=== PATIENT | male | born 1965 | race African-American/Black ===

== ENCOUNTER 2016-12-19 18:23 | Emergency (ER) | payer OTHER ==
[~2016-12-19] VITALS: Ht 180.3 cm; Wt 91.0 kg
[2016-12-19 18:26] VITALS: BP 157/92
[2016-12-19] MEDS ORDERED: METO-539 PO (18:28)
[2016-12-19] MEDS ORDERED: LISI-604 PO (18:28)
== END 2016-12-19 19:53 | disposition home or self-care (01) ==
LOC: ER 19:51
DX: Z76.0 Encounter for issue of repeat prescription (principal); I10 Essential (primary) hypertension
CPT/HCPCS: 99283

== ENCOUNTER 2017-04-09 15:58 | Emergency (ER) | payer SELFPAY ==
[~2017-04-09] VITALS: Ht 175.3 cm; Wt 90.0 kg
[~2017-04-09 15:58] MED LIST: LISI-604 PO; METO-539 PO
[2017-04-09] MEDS ORDERED: SODIUM CHLORIDE 0.9% 1,000 ML IV ONE (16:13)
[2017-04-09 17:04] LABS: CHLORIDE 104 mEq/L (98-107)
[2017-04-09 17:06] LABS: INR 1.1; PROTHROMBIN TIME 11.5 sec (9.4-11.6)
[2017-04-09 17:09] LABS: CARBON DIOXIDE 31 mEq/L (21-32)
[2017-04-09 17:14] LABS: BASOPHILS % 0.3 % (0.0-2.0); EOSINOPHILS % 0.6 % (0.0-5.0); HEMATOCRIT. 35.1 % (42.0-52.0); HEMOGLOBIN. 12.1 g/dL (14.0-18.0); MEAN CORPUSCULAR HEMOGLOBIN 35.3 pg (28.0-32.0); MEAN CORPUSCULAR VOLUME 102.4 fL (80.0-94.0); MONOCYTES % 10.3 % (2.0-8.0); NEUTROPHILS % 46.8 % (40.0-76.0); PLATELET 270 x1000/uL (130-400); RED BLOOD CELL COUNT 3.43 mill/uL (4.7-6.1); RED CELL DISTRIBUTION WIDTH 14.3 % (11.6-14.6)
[2017-04-09 18:43] LABS: CLARITY URINE CLEAR (CLEAR); COLOR URINE YELLOW (YELLOW); GLUCOSE URINE NEGATIVE (NEGATIVE); KETONES URINE NEGATIVE (NEGATIVE); LEUKOCYTE ESTERASE URINE NEGATIVE (NEGATIVE); NITRITE URINE NEGATIVE (NEGATIVE); OCCULT BLOOD URINE NEGATIVE (NEGATIVE); PROTEIN URINE NEGATIVE (NEGATIVE); SPECIFIC GRAVITY URINE 1.017 (1.005-1.030)
[2017-04-09 19:24] VITALS: BP 126/74
== END 2017-04-09 19:25 | disposition home or self-care (01) ==
LOC: ER 15:58
DX: R55 Syncope and collapse (principal); I10 Essential (primary) hypertension; Z86.73 Personal history of transient ischemic attack (TIA), and cerebral infarction without residual deficits
CPT/HCPCS: 36415; 80053; 81003; 85025; 85610; 93005; 96360; 96361; 99285; J7030; Z7610

== ENCOUNTER 2018-10-10 00:51 | Emergency (ER) | payer MEDICAID ==
[~2018-10-10] VITALS: Ht 175.3 cm; Wt 97.0 kg
[2018-10-10] MEDS ORDERED: HYDROCODONE/ACETAMINOPHEN 5/325MG TABLET PO ONE (02:30)
[2018-10-10 03:01] VITALS: BP 130/80
== END 2018-10-10 03:03 | disposition home or self-care (01) ==
LOC: ER 00:51
DX: H66.92 Otitis media, unspecified, left ear (principal); I10 Essential (primary) hypertension; F12.90 Cannabis use, unspecified, uncomplicated; Z86.73 Personal history of transient ischemic attack (TIA), and cerebral infarction without residual deficits
CPT/HCPCS: 99283

== ENCOUNTER 2018-10-14 16:52 | Emergency (ER) | payer MEDICAID ==
[~2018-10-14] VITALS: Ht 185.4 cm; Wt 91.0 kg
[2018-10-14 20:47] VITALS: BP 142/91
== END 2018-10-14 20:48 | disposition home or self-care (01) ==
LOC: ER 19:14
DX: R42 Dizziness and giddiness (principal); M79.602 Pain in left arm; H53.8 Other visual disturbances; V49.49XA Driver injured in collision with other motor vehicles in traffic accident, initial encounter; I10 Essential (primary) hypertension; Y93.89 Activity, other specified; Y92.410 Unspecified street and highway as the place of occurrence of the external cause
CPT/HCPCS: 99284

== ENCOUNTER 2018-12-10 23:45 | Emergency (ER) | payer MEDICAID, OTHER ==
[~2018-12-10] VITALS: Ht 175.3 cm; Wt 100.0 kg
[2018-12-11] MEDS: METOPROLOL TARTRATE 50MG TABLET PO ONE (01:12)
[2018-12-11 02:25] VITALS: BP 136/89
== END 2018-12-11 02:26 | disposition home or self-care (01) ==
LOC: ER 23:45
DX: I47.1 Supraventricular tachycardia (principal); R07.89 Other chest pain; R42 Dizziness and giddiness; R00.2 Palpitations; I10 Essential (primary) hypertension; Z86.73 Personal history of transient ischemic attack (TIA), and cerebral infarction without residual deficits; F12.10 Cannabis abuse, uncomplicated
CPT/HCPCS: 93005; 99283

== ENCOUNTER 2019-01-05 03:12 | Inpatient (IN) | payer MEDICAID, OTHER ==
[~2019-01-05] VITALS: Ht 175.3 cm; Wt 95.3 kg
[2019-01-05] MEDS ORDERED: SODIUM CHLORIDE 0.9% 1,000 ML IV ONE (03:52)
[2019-01-05] MEDS ORDERED: ONDANSETRON HCL 4MG/2ML INJ IV STA (03:52)
[2019-01-05] MEDS ORDERED: MORPHINE SULFATE 4 MG/ML CPJ (NOT FOR IM USE) IV ONE (04:00)
[2019-01-05 04:16] LABS: BASOPHILS % 0.5 % (0.0-2.0); EOSINOPHILS % 1.3 % (0.0-5.0); HEMATOCRIT. 41.5 % (42.0-52.0); HEMOGLOBIN. 14.8 g/dL (14.0-18.0); LYMPHOCYTES % 54.1 % (20.0-50.0); MEAN CORPUSCULAR HEMOGLOBIN 35.8 pg (28.0-32.0); MEAN CORPUSCULAR VOLUME 100.1 fL (80.0-94.0); MEAN PLATELET VOLUME 7.3 fl (7.4-10.4); MONOCYTES % 11.7 % (2.0-8.0); NEUTROPHILS % 32.4 % (40.0-76.0); PLATELET 228 x1000/uL (130-400); RED BLOOD CELL COUNT 4.15 mill/uL (4.7-6.1); RED CELL DISTRIBUTION WIDTH 14.2 % (11.6-14.6)
[2019-01-05 04:26] LABS: CHLORIDE 105 mEq/L (98-107)
[2019-01-05 04:31] LABS: ETHANOL BLOOD < 10 mg/dL
[2019-01-05] MEDS ORDERED: SODIUM CHLORIDE 0.9% 1,000 ML IV SCH (07:03)
[2019-01-05] MEDS ORDERED: HYDROCODONE/ACETAMINOPHEN 5/325MG TABLET PO PRN (07:15)
[2019-01-05] MEDS ORDERED: DOCUSATE SODIUM 100MG CAPSULE PO PRN (07:15)
[2019-01-05] MEDS ORDERED: ONDANSETRON HCL 4MG/2ML INJ IV PRN (07:15)
[2019-01-05] MEDS ORDERED: ACETAMINOPHEN 325MG TABLET PO PRN (07:15)
[2019-01-05 08:00] VITALS: BP 145/84
[2019-01-05 09:09] VITALS: BP 145/84
[2019-01-05] MEDS ORDERED: CLOPIDOGREL 75MG TABLET PO SCH (10:06)
[2019-01-05] MEDS ORDERED: LISINOPRIL 10MG TABLET PO SCH (10:07)
[2019-01-05 12:00] VITALS: BP 124/91
[2019-01-05 12:08] VITALS: BP 145/84
[2019-01-05 16:00] VITALS: BP 121/79
[2019-01-05 18:00] LABS: CREATINE KINASE 258 IU/L (39-308)
== END 2019-01-05 19:35 | disposition home or self-care (01) | DRG 48 ==
LOC: ER 03:12 → 8WST 05:20 → SUPCPDRO 07:01 → ENRESERV 07:27
PROVIDERS: ADMIT Hospitalist; ATTEND Hospitalist
DX: G90.8 Other disorders of autonomic nervous system (principal); I95.9 Hypotension, unspecified; F17.210 Nicotine dependence, cigarettes, uncomplicated; I10 Essential (primary) hypertension; T44.7X5A Adverse effect of beta-adrenoreceptor antagonists, initial encounter; R00.1 Bradycardia, unspecified; Z86.73 Personal history of transient ischemic attack (TIA), and cerebral infarction without residual deficits; Y92.89 Other specified places as the place of occurrence of the external cause
CPT/HCPCS: 36415; 71045; 72170; 73562; 80320; 82550; 82962; 83605; 84484; 93005; 93306; 93970; 97162; 97165; 99291; J2270; J2405; J7030; G0480